=== PATIENT | female | born 1965 | race Caucasian/White ===

== ENCOUNTER 2019-02-20 19:24 | Emergency (ER) | payer MEDICARE ==
[2019-02-20] MEDS ORDERED: ONDANSETRON HCL INJ/PF 4 MG/2 ML SDV IV ONE (20:29)
[2019-02-20] MEDS ORDERED: NORMAL SALINE 1000 ML 1,000 ML IV ONE ×2 (20:29→22:34)
--- NOTE | 2019-02-20 20:35 | ER Document Report ---
ED Medical Screen (RME) - General Chief Complaint: Abdominal Pain Stated Complaint: HEADACHE Time Seen by Provider: 02/20/19 20:25 TRAVEL OUTSIDE OF THE [place] IN LAST 30 DAYS: No - HPI Notes: 02/20/19 20:29 Patient is a 53-year-old female with a history of fibromyalgia who presents complaining of right lower abdominal pain, nausea/vomiting, intermittent headaches, and 20 pound weight loss over the past 3 months. This is not the worst NULL of her life and did not start as a thunderclap. Denies fever, neck pain, URI, CP, SOB, dysuria, or rash. I have treated and performed a rapid initial assessment of this patient. A comprehensive ED assessment and evaluation of the patient, analysis of test results and completion of medical decision making process will be conducted by additional ED providers. PHYSICAL EXAMINATION: GENERAL: Well-appearing, well-nourished and in no acute distress. A&Ox4. Answers questions appropriately. LUNGS: Breath sounds clear to auscultation bilaterally and equal. No wheezes rales or rhonchi. HEART: Regular rate and rhythm without murmurs, rubs, gallops. ABDOMEN: Soft, nondistended abdomen. No guarding, no rebound. Normal bowel sounds present. No CVA tenderness bilaterally. + RLQ tenderness (cannot elicit thorough abd exam w/o bed, however). Extremities: No cyanosis, clubbing, or edema b/l. NEUROLOGICAL: Normal speech, normal gait. Cranial nerves grossly intact. PSYCH: Normal mood, normal affect. Past Medical History - Social History Chew tobacco use (# tins/day): No Frequency of alcohol use: None Drug Abuse: None Neurological Medical History: Reports: Hx Migraine Renal/ Medical History: Denies: Hx Peritoneal Dialysis Psychiatric Medical History: Reports: Hx Bipolar Disorder Physical Exam - Vital signs Vitals: Temp Pulse Resp BP Pulse Ox 98.0 F 70 18 116/49 L 97 02/20/19 19:48 02/20/19 19:48 02/20/19 19:48 02/20/19 19:48 02/20/19 19:48 Course - Vital Signs Vital signs: Temp Pulse Resp BP Pulse Ox 98.0 F 70 18 116/49 L 97 02/20/19 19:48 02/20/19 19:48 02/20/19 19:48 02/20/19 19:48 02/20/19 19:48
[2019-02-20] MEDS ORDERED: ONDANSETRON HCL INJ/PF 4 MG/2 ML SDV ONE ×2 (20:55→20:59)
[2019-02-20] MEDS ORDERED: METOCLOPRAMIDE HCL INJ/PF 10 MG/2 ML SDV IV ONE (21:26)
[2019-02-20] MEDS ORDERED: DIPHENHYDRAMINE HCL 50 MG/ML VIAL IV ONE (21:26)
--- NOTE | 2019-02-20 21:28 | ER Document Report ---
ED General - General Chief Complaint: Abdominal Pain Stated Complaint: HEADACHE Time Seen by Provider: 02/20/19 20:25 Notes: Patient is a 53-year-old female that comes to the emergency department for chief complaint of ongoing pain in her right mid to lower abdomen, nausea, reduced ability to eat, and subsequent weight loss. She states is been going on for weeks now. She denies abnormal bowel movements or bloody stools, she denies vomiting or fever. She states she is still nauseated after nausea medicine from triage, she states that she has intermittent headaches as well. She denies any surgeries. Past medical history of bipolar disorder, fibromyalgia, she is medicated with Depakote, gabapentin, Prozac, oxybutynin, and trazodone. at bedside. TRAVEL OUTSIDE OF THE [place] IN LAST 30 DAYS: No - Related Data Allergies/Adverse Reactions: Penicillins Allergy (Verified 02/20/19 20:30) Past Medical History - General Information source: Patient - Social History Smoking Status: Current Every Day Smoker Chew tobacco use (# tins/day): No Frequency of alcohol use: None Drug Abuse: None Lives with: Family Family History: Reviewed & Not Pertinent Patient has suicidal ideation: No Patient has homicidal ideation: No Neurological Medical History: Reports: Hx Migraine Renal/ Medical History: Denies: Hx Peritoneal Dialysis Psychiatric Medical History: Reports: Hx Bipolar Disorder - Immunizations Immunizations up to date: Yes Hx Diphtheria, Pertussis, Tetanus Vaccination: Yes Review of Systems - Review of Systems Constitutional: See HPI EENT: No symptoms reported Cardiovascular: No symptoms reported Respiratory: No symptoms reported Gastrointestinal: See HPI Genitourinary: No symptoms reported Female Genitourinary: No symptoms reported Musculoskeletal: No symptoms reported Skin: No symptoms reported Hematologic/Lymphatic: No symptoms reported Neurological/Psychological: No symptoms reported Physical Exam - Vital signs Vitals: Temp Pulse Resp BP Pulse Ox 98.0 F 70 18 116/49 L 97 02/20/19 19:48 02/20/19 19:48 02/20/19 19:48 02/20/19 19:48 02/20/19 19:48 - Notes Notes: GENERAL: Appears tired and mildly uncomfortable but is not in severe distress. HEAD: Normocephalic, atraumatic. EYES: Pupils equal, round, and reactive to light. Extraocular movements intact. ENT: Oral mucosa dry, tongue midline. Oropharynx unremarkable. Airway patent. LUNGS: Clear to auscultation bilaterally, no wheezes, rales, or rhonchi. No respiratory distress. HEART: Regular rate and rhythm. No murmur ABDOMEN: There is some diffuse mild tenderness in all quadrants, there is no guarding or rigidity, bowel sounds present and unremarkable. GENITOURINARY: Deferred EXTREMITIES: Moves all 4 extremities spontaneously. No edema, normal radial and dorsalis pedis pulses bilaterally. No cyanosis. BACK: no cervical, thoracic, lumbar midline tenderness. No saddle anesthesia, normal distal neurovascular exam. Moves all extremities in full range of motion. NEUROLOGICAL: Alert and oriented x3. Normal speech. Cranial nerves II through XII grossly intact. PSYCH: Normal affect, normal mood. SKIN: Warm, dry, normal turgor. No rashes or lesions noted. Course - Re-evaluation Re-evalutation: Patient has generalized abdominal tenderness on exam. She appears slightly uncomfortable. Vital signs unremarkable. CBC unremarkable. Chemistry shows slightly elevated potassium at 5.6, BUN is elevated, elevated specific gravity on urinalysis, hyaline casts. Overall picture is consistent with dehydration. Patient was given 2 bags of IV fluids. Because of patient's tenderness on exam and discomfort which has been ongoing decision was made to proceed with CAT scan with oral and IV contrast. Patient was treated with Reglan and Benadryl and does feel much better afterwards. CAT scan showing colitis. No abscess, perforation, appendicitis, or other concerning findings. This is consistent with patient's presentation. On reevaluation patient is requesting to leave. She will be given antibiotics, she will have close primary care recheck, her potassium was borderline but she was given 2 bags of IV fluids and this will be rechecked. I discussed follow-up instructions and strict return precautions in detail with patient and sig nificant other. They state satisfaction and agreement. Patient tolerated her p.o. antibiotics without difficulty. Stable at time of discharge. - Vital Signs Vital signs: Temp Pulse Resp BP Pulse Ox 98.0 F 70 18 128/54 H 97 02/20/19 19:48 02/20/19 19:48 02/20/19 19:48 02/20/19 23:15 02/20/19 19:48 - Laboratory Result Diagrams: 02/20/19 20:58 02/20/19 20:58 Laboratory results interpreted by me: 02/20/19 02/20/19 20:58 20:58 Sodium 135.9 L Potassium 5.6 H BUN 23 H Est GFR (MDRD) Non-Af 54 L Glucose 111 H AST 39 H Ur Leukocyte Esterase TRACE H Discharge - Discharge Clinical Impression: Colitis, Dehydration Abdominal pain Qualifiers: Abdominal location: generalized Qualified Code(s): R10.84 - Generalized abdominal pain Condition: Stable Disposition: HOME, SELF-CARE Additional Instructions: Your evaluation is consistent with colitis. Take the antibiotics as prescribed. I recommend a clear fluid diet for the first 24 hours, then bland food, then slowly progress. Take the pain and nausea medications if needed. Follow-up with your primary care provider closely for additional evaluation management. Return if you worsen including fever, vomiting, severe worsening pain, bloody stools, or any other concerning or worsening symptoms. Prescriptions: Ciprofloxacin HCl [Cipro 500 mg Tablet] 500 mg PO BID 7 Days #14 tablet Metronidazole [Flagyl 500 mg Tablet] 500 mg PO TID 7 Days #21 tablet Hydrocodone/Acetaminophen [[place] 5-325 mg Tablet] 1 tab PO ASDIR #10 tablet Promethazine HCl [Phenergan 25 mg Tablet] 25 mg PO Q6H PRN #15 tablet PRN Reason:
[2019-02-20 21:30] LABS: ABSOLUTE EOSINOPHILS # (AUTO) 0.2 10^3/uL (0.0-0.6); ABSOLUTE LYMPHOCYTES (AUTO) 2.7 10^3/uL (0.5-4.7); ABSOLUTE MONOCYTES (AUTO) 1.1 10^3/uL (0.1-1.4); BASOPHILS % (AUTO) 0.5 % (0-2); EOSINOPHILS % (AUTO) 1.6 % (0-6); HEMATOCRIT 42.9 % (36.0-47.0); HEMOGLOBIN 14.4 g/dL (12.0-15.5); LYMPHOCYTES % (AUTO) 26.9 % (13-45); MEAN CORPUSCULAR HEMOGLOBIN 32.5 pg (27.0-33.4); MEAN CORPUSCULAR HGB CONC 33.6 g/dL (32.0-36.0); MEAN CORPUSCULAR VOLUME 97 fl (80-97); MONOCYTES % (AUTO) 10.8 % (3-13); PLATELET COUNT 282 10^3/uL (150-450); RED BLOOD COUNT 4.43 10^6/uL (3.72-5.28); RED CELL DISTRIBUTION WIDTH 13.3 % (11.5-14.0); SEGMENTED NEUTROPHILS % (AUTO) 60.2 % (42-78); TOTAL CELLS COUNTED % (AUTO) 100 %
[2019-02-20 21:33] LABS: APPEARANCE,URINE CLOUDY; BILIRUBIN,URINE NEGATIVE (NEGATIVE); COLOR,URINE AMBER; GLUCOSE, URINE NEGATIVE (NEGATIVE); KETONES,URINE NEGATIVE (NEGATIVE); LEUKOCYTE ESTERASE,URINE TRACE (NEGATIVE); NITRITE,URINE NEGATIVE (NEGATIVE); PROTEIN,URINE NEGATIVE (NEGATIVE); URINE SPECIFIC GRAVITY 1.032; UROBILINOGEN,URINE NEGATIVE mg/dL (<2.0)
[2019-02-20 21:35] LABS: ALBUMIN 4.4 g/dL (3.5-5.0); ALKALINE PHOSPHATASE 72 U/L (38-126); ANION GAP 8 (5-19); ASPARTATE AMINO TRANSFERASE 39 U/L (14-36); BILIRUBIN,DIRECT 0.2 mg/dL (0.0-0.4); BILIRUBIN,TOTAL 0.2 mg/dL (0.2-1.3); BLOOD UREA NITROGEN 23 mg/dL (7-20); CALCIUM 10.2 mg/dL (8.4-10.2); CARBON DIOXIDE 29 mmol/L (22-30); CHLORIDE 99 mmol/L (98-107); GLUCOSE 111 mg/dL (75-110); POTASSIUM 5.6 mmol/L (3.6-5.0); TOTAL PROTEIN 6.8 g/dL (6.3-8.2)
[2019-02-20] MEDS ORDERED: PROMETHAZINE HCL INJ 25 MG/1 ML VIAL ONE (22:01)
[2019-02-20 23:16] VITALS: BP 128/54
--- NOTE | 2019-02-20 23:27 | RADIOLOGY REPORT (SQ) ---
CT ABDOMEN PELVIS WITH IV CONTRAST EXAM DATE: 02/20/2019 12:00 AM CDT HISTORY: Right lower quadrant pain. COMPARISON: None. TECHNIQUE: CT scan of the abdomen and pelvis was performed with IV contrast. This exam was performed according to our departmental dose-optimization program, which includes automated exposure control, adjustment of the mA and/or kV according to patient size and/or use of iterative reconstruction technique. FINDINGS: The lung bases are clear. No pleural or pericardial effusions. The gallbladder is contracted, limiting evaluation. Liver, spleen, pancreas, adrenal glands, and kidneys are normal. No hydronephrosis or urinary stones. The uterus appears atrophic. Mild wall thickening throughout the colon. The appendix is normal. No small bowel obstruction. No intraperitoneal free fluid or free air is seen. No acute bony findings. The aorta is normal in caliber. IMPRESSION: 1. Mild wall thickening of the colon which may represent colitis. 2. Normal appendix.
[2019-02-21] MEDS ORDERED: HYDROCODONE/ACETAMINOPHEN 5-325 MG (6 TAB/ER DISP) PO PRN (00:02)
[2019-02-21] MEDS ORDERED: CIPROFLOXACIN HCL 500 MG TABLET PO ONE (00:02)
[2019-02-21] MEDS ORDERED: METRONIDAZOLE 500 MG TABLET PO ONE (00:02)
[2019-02-21] MEDS ORDERED: ONDANSETRON ODT 4 MG TAB (6 TAB/ER DISP) PO PRN (00:02)
== END 2019-02-21 00:21 | disposition home or self-care (01) ==
LOC: ER 19:24
DX: R10.84 Generalized abdominal pain (principal); K52.9 Noninfective gastroenteritis and colitis, unspecified; E86.0 Dehydration; R51 Headache; R10.31 Right lower quadrant pain; R63.0 Anorexia; R11.0 Nausea; R63.4 Abnormal weight loss; F17.200 Nicotine dependence, unspecified, uncomplicated
CPT/HCPCS: 36415; 83690; 85025; 80053; 81001; 74177; J1200; J2765; J2405; J7030

== ENCOUNTER 2019-03-11 16:44 | Emergency (ER) | payer MEDICARE ==
--- NOTE | 2019-03-11 18:24 | ER Document Report ---
ED Medical Screen (RME) - General Mode of Arrival: Ambulatory Information source: Patient TRAVEL OUTSIDE OF THE [place] IN LAST 30 DAYS: No <SANDI MORALES - Last Filed: 03/11/19 18:20> <FAMILIA HUERTA - Last Filed: 03/12/19 13:24> - General Chief Complaint: Depression Stated Complaint: PSYCH Time Seen by Provider: 03/11/19 18:19 Primary Care Provider: KAREEM MCALLISTER MD [Primary Care Provider] - Follow up as needed Notes: 54-year-old female presented to ED for complaint of severe depression. She states she is bipolar and has not been taking her medications correctly. 3 weeks ago she was seen in the ED for abdominal pain and infection got pain medicine and antibiotics. Has been states she thinks she got the medication mixed up with her normal medications so she has not been taken her medication properly and now she is severely depressed and wants to sleep all the time. He she needs to sleep and states she is not eating at all and also wants to do a sleep. She denies any thoughts of suicide or homicide. states she just need to figure out what is going on with her. I have greeted and performed a rapid initial assessment of this patient. A comprehensive ED assessment and evaluation of the patient, analysis of test results and completion of medical decision making process will be conducted by an additional ED providers. (SANDI MORALES) - Related Data Allergies/Adverse Reactions: Penicillins Allergy (Verified 03/11/19 16:45) Past Medical History Neurological Medical History: Reports: Hx Migraine Renal/ Medical History: Denies: Hx Peritoneal Dialysis Psychiatric Medical History: Reports: Hx Bipolar Disorder - Immunizations Immunizations up to date: Yes Hx Diphtheria, Pertussis, Tetanus Vaccination: Yes <SANDI MORALES - Last Filed: 03/11/19 18:20> Physical Exam - Vital signs Vitals: Temp Pulse Resp BP Pulse Ox 97.9 F 88 16 113/44 L 96 03/11/19 16:51 03/11/19 16:51 03/11/19 16:51 03/11/19 16:51 03/11/19 16:51 Course - Laboratory Result Diagrams: 03/11/19 18:58 03/11/19 18:58 <FAMILIA HUERTA P - Last Filed: 03/12/19 13:24> - Vital Signs Vital signs: Temp Pulse Resp BP Pulse Ox 98.4 F 80 16 114/38 L 95 03/12/19 07:57 03/12/19 07:57 03/12/19 07:57 03/12/19 07:57 03/12/19 07:57 - Laboratory Laboratory results interpreted by me: 03/11/19 03/11/19 03/11/19 18:58 18:58 18:58 Sodium 133.3 L Chloride 97 L Glucose 152 H Calcium 10.4 H Urine Protein 100 H Urine Ketones TRACE H Urine Blood SMALL H Urine Urobilinogen 4.0 H Valproic Acid < 10.0 L Doctor's Discharge <SANDI MORALES - Last Filed: 03/11/19 18:20> <FAMILIA HUERTA P - Last Filed: 03/12/19 13:24> - Discharge Clinical Impression: Noncompliance with medication regimen Depression Qualifiers: Depression Type: unspecified Qualified Code(s): F32.9 - Major depressive disorder, single episode, unspecified Condition: Stable Disposition: HOME, SELF-CARE Additional Instructions: You have been evaluated both medical and behavioral health teams have been deemed appropriate for discharge. You have disclosed wanting to voluntarily get back on your medication. The behavioral health team has been able to secure a bed for you at [facility] With an arrival time of 1:30 PM. You are highly encouraged to follow through with this voluntary placement. AT ANY TIME, IF YOUR SYMPTOMS CHANGE SIGNIFICANTLY OR WORSEN OR YOU DEVELOP NEW SYMPTOMS, RETURN TO THE EMERGENCY DEPARTMENT IMMEDIATELY FOR RE-EVALUATION. Referrals: KAREEM MCALLISTER MD [Primary Care Provider] - Follow up as needed
[2019-03-11 19:24] LABS: ABSOLUTE EOSINOPHILS # (AUTO) 0.1 10^3/uL (0.0-0.6); ABSOLUTE LYMPHOCYTES (AUTO) 2.8 10^3/uL (0.5-4.7); ABSOLUTE MONOCYTES (AUTO) 0.7 10^3/uL (0.1-1.4); ABSOLUTE NEUT (AUTO) 6.6 10^3/uL (1.7-8.2); BASOPHILS % (AUTO) 0.5 % (0-2); EOSINOPHILS % (AUTO) 0.6 % (0-6); HEMATOCRIT 41.7 % (36.0-47.0); HEMOGLOBIN 14.4 g/dL (12.0-15.5); LYMPHOCYTES % (AUTO) 27.8 % (13-45); MEAN CORPUSCULAR HEMOGLOBIN 32.4 pg (27.0-33.4); MEAN CORPUSCULAR HGB CONC 34.4 g/dL (32.0-36.0); MEAN CORPUSCULAR VOLUME 94 fl (80-97); MONOCYTES % (AUTO) 6.4 % (3-13); PLATELET COUNT 298 10^3/uL (150-450); RED BLOOD COUNT 4.43 10^6/uL (3.72-5.28); RED CELL DISTRIBUTION WIDTH 13.1 % (11.5-14.0); SEGMENTED NEUTROPHILS % (AUTO) 64.7 % (42-78); TOTAL CELLS COUNTED % (AUTO) 100 %; WHITE BLOOD COUNT 10.2 10^3/uL (4.0-10.5)
[2019-03-11 19:33] LABS: APPEARANCE,URINE SLIGHTLY-CLOUDY; BILIRUBIN,URINE NEGATIVE (NEGATIVE); COLOR,URINE AMBER; GLUCOSE, URINE NEGATIVE (NEGATIVE); KETONES,URINE TRACE mg/dL (NEGATIVE); LEUKOCYTE ESTERASE,URINE NEGATIVE (NEGATIVE); NITRITE,URINE NEGATIVE (NEGATIVE); PROTEIN,URINE 100 mg/dL (NEGATIVE); URINE SPECIFIC GRAVITY 1.018
[2019-03-11 19:41] LABS: ALBUMIN 4.4 g/dL (3.5-5.0); ALKALINE PHOSPHATASE 75 U/L (38-126); ANION GAP 10 (5-19); ASPARTATE AMINO TRANSFERASE 24 U/L (14-36); BILIRUBIN,DIRECT 0.1 mg/dL (0.0-0.4); BILIRUBIN,TOTAL 0.4 mg/dL (0.2-1.3); BLOOD UREA NITROGEN 8 mg/dL (7-20); CALCIUM 10.4 mg/dL (8.4-10.2); CARBON DIOXIDE 26 mmol/L (22-30); CHLORIDE 97 mmol/L (98-107); CREATINE KINASE 52 U/L (30-135); GLUCOSE 152 mg/dL (75-110); TOTAL PROTEIN 6.9 g/dL (6.3-8.2)
[2019-03-11] MEDS ORDERED: DIVALPROEX SODIUM 250 MG TABLET.DR PO SCH (22:35)
[2019-03-11] MEDS ORDERED: GABAPENTIN 300 MG CAPSULE PO SCH (22:35)
[2019-03-11] MEDS ORDERED: FLUOXETINE HCL 20 MG CAPSULE PO SCH (22:36)
[2019-03-11] MEDS ORDERED: TRAZODONE HCL 50 MG TABLET PO SCH (22:40)
[2019-03-11] MEDS ORDERED: OXYBUTYNIN CHLORIDE 5 MG TABLET PO SCH (22:40)
--- NOTE | 2019-03-11 23:37 | ER Document Report ---
Entered by CANDIDO BECK SCRIBE 03/11/19 2208 Acting as scribe for:ARON ALFRED MD ED Psych Disorder / Suicide - General Chief Complaint: Depression Stated Complaint: PSYCH Time Seen by Provider: 03/11/19 18:19 Primary Care Provider: KAREEM MCALLISTER MD [Primary Care Provider] - Follow up as needed Mode of Arrival: Ambulatory Information source: Patient Notes: Patient is a 54-year-old female who presented to the emergency department today with complaints of being depressed. Patient states that she was seen here 3 weeks ago and was diagnosed with colitis, sent home on cipro and flagyl. Patient states she "mixed up her medicine" and so she stopped taking them altogether. Patient states she has not taken any medication today. Patient is supposed to be taking Cipro, Flagyl, Depakote, Prozac, trazodone, and gabapentin. Patient endorses feeling depressed but denies any suicidal or homicidal ideation. TRAVEL OUTSIDE OF THE [place] IN LAST 30 DAYS: No - Related Data Allergies/Adverse Reactions: Penicillins Allergy (Verified 03/11/19 16:45) Past Medical History - General Information source: Patient - Social History Smoking Status: Current Every Day Smoker Cigarette use (# per day): Yes - 2 ppd Frequency of alcohol use: None Drug Abuse: None Lives with: Family Family History: Reviewed & Not Pertinent Neurological Medical History: Reports: Hx Migraine GI Medical History: Reports: Other - Hx Colitis Psychiatric Medical History: Reports: Hx Bipolar Disorder Surgical Hx: Negative - Immunizations Immunizations up to date: Yes Hx Diphtheria, Pertussis, Tetanus Vaccination: Yes Review of Systems - Review of Systems Constitutional: See HPI, Other - not taking medications EENT: No symptoms reported Cardiovascular: No symptoms reported Respiratory: No symptoms reported Gastrointestinal: No symptoms reported Genitourinary: No symptoms reported Female Genitourinary: No symptoms reported Musculoskeletal: No symptoms reported Skin: No symptoms reported Hematologic/Lymphatic: No symptoms reported Neurological/Psychological: See HPI, Depression. denies: Homicidal ideation, Suicidal ideation -: Yes All other systems reviewed and negative Physical Exam - Vital signs Vitals: Temp Pulse Resp BP Pulse Ox 97.9 F 88 16 113/44 L 96 03/11/19 16:51 03/11/19 16:51 03/11/19 16:51 03/11/19 16:51 03/11/19 16:51 - Notes Notes: Physical Exam: General: Alert, appears depressed, very frail. HEENT: Normocephalic. Atraumatic. PERRL. Extraocular movements intact. Oropharynx clear. Edentulous, dentures in place. Neck: Supple. Non-tender. Respiratory: No respiratory distress. Clear and equal breath sounds bilaterally. Cardiovascular: Regular rate and rhythm. Abdominal: Normal Inspection. Non-tender. No distension. Normal Bowel Sounds. Back: No gross abnormalities. Extremities: Moves all four extremities. Upper extremities: Normal inspection. Normal ROM. Lower extremities: Normal inspection. No edema. Normal ROM. Neurological: Normal cognition. AAOx4. Normal speech. Psychological: Depressed. Skin: Warm. Dry. Normal color. Course - Vital Signs Vital signs: Temp Pulse Resp BP Pulse Ox 97.9 F 88 16 113/44 L 96 03/11/19 16:51 03/11/19 16:51 03/11/19 16:51 03/11/19 16:51 03/11/19 16:51 - Laboratory Result Diagrams: 03/11/19 18:58 03/11/19 18:58 Laboratory results interpreted by me: 03/11/19 03/11/19 18:58 18:58 Sodium 133.3 L Chloride 97 L Glucose 152 H Calcium 10.4 H Urine Protein 100 H Urine Ketones TRACE H Urine Blood SMALL H Urine Urobilinogen 4.0 H Discharge - Discharge Clinical Impression: Noncompliance with medication regimen Depression Qualifiers: Depression Type: unspecified Qualified Code(s): F32.9 - Major depressive disorder, single episode, unspecified Condition: Stable Disposition: PSYCH HOSP/UNIT Referrals: KAREEM MCALLISTER MD [Primary Care Provider] - Follow up as needed Scribe Attestation: 03/11/19 23:38 I personally performed the services described in the documentation, reviewed and edited the documentation which was dictated to the scribe in my presence, and it accurately records my words and actions. I personally performed the services described in the documentation, reviewed and edited the documentation which was dictated to the scribe in my presence, and it accurately records my words and actions.
[2019-03-12] MEDS ORDERED: DIVALPROEX SODIUM 250 MG TABLET.DR PO ONE (00:49)
[2019-03-12] MEDS ORDERED: TRAZODONE HCL 50 MG TABLET PO ONE (00:51)
[2019-03-12 08:03] VITALS: BP 114/38
[2019-03-12] MEDS: OXYBUTYNIN CHLORIDE 5 MG TABLET PO SCH ×2 (09:15→13:20)
[2019-03-12] MEDS ORDERED: GABAPENTIN 300 MG CAPSULE PO SCH (10:00)
[2019-03-12] MEDS ORDERED: FLUOXETINE HCL 20 MG CAPSULE PO SCH (10:00)
[2019-03-12] MEDS ORDERED: TRAZODONE HCL 50 MG TABLET PO SCH (10:00)
[2019-03-12] MEDS ORDERED: DIVALPROEX SODIUM 250 MG TABLET.DR PO SCH (10:00)
--- NOTE | 2019-03-12 10:34 | ER Document Report ---
Doctor's Note Notes: 03/12/19 10:33 Pt seen with no specific complaints to me at this time. She is sleepy. I will ask psychiatry to see and offer some input. She is here voluntarily up to now. reportedly went home to get some sleep.
--- NOTE | 2019-03-12 12:09 | PSYCHOLOGICAL NOTE ---
Psych Note - Psych Note Date seen by psych provider: 03/12/19 Time seen by psych provider: 11:04 Psych Note: Reason for Consult: Depression Patient is a 54-year-old female who presented to the emergency department today with complaints of being depressed. Patient states that she was seen here 3 weeks ago and was diagnosed with colitis, sent home on cipro and flagyl. Patient states she "mixed up her medicine" and so she stopped taking all of her medications. She disclosed that she asked her to bring her here so she can get help getting "back on medications and get straightened out." Patient denies any thoughts of wanting to harm herself or others. Patient disclosed her medications are Depakote, Prozac, and trazodone. Patient denies seeing or hearing things that confuse her scare her. Patient is alert and orientated to person, place, time and circumstance. Patient had to be awoken for evaluation. Clinician notes patient has been sleeping nonstop since her initial arrival. Patient denies suicidal and homicidal ideation. Delusions are absent behaviors congruent with an intact reality based presentation i.e. organized linear thought process. Eye contact is fair. Conversational speech is within normal rate, tone and prosody. Intellectual abilities appear to be within the average range. Attention and concentration are fair. Insight, judgment, impulse control are fair. The behavioral team contacted [facility]. They confirm they will reserve a bed for the patient 4 arrival time of 1:30 PM. Bipolar per history provided by patient No medication recommendations at this time Impression\\plan: Patient is cleared from acute psychiatric services. Patient reports being off medications for 3 weeks and wanting to get back on. Patient does not meet IVC criteria per [place] GS 122C. Patient reports wanting to voluntarily get back on her medications and get "straightened out." Behavioral health team has been able to secure a bed at [facility] with an arrival time of 1:[address] Berger was consulted and the care management of this patient; attending physicians in agreement with recommendations and disposition.
== END 2019-03-12 14:38 | disposition home or self-care (01) ==
LOC: ER 16:44
DX: Z91.14 Patient's other noncompliance with medication regimen (principal); F32.9 Major depressive disorder, single episode, unspecified; Z88.0 Allergy status to penicillin
CPT/HCPCS: 36415; 82550; 83690; 85025; 80053; 81001; 80164; A9270 ×5; 99284

== ENCOUNTER 2019-08-07 15:15 | Emergency (ER) | payer MEDICARE ==
--- NOTE | 2019-08-07 16:20 | ER Document Report ---
ED Medical Screen (RME) - General Chief Complaint: Depression Stated Complaint: DIARRHEA Time Seen by Provider: 08/07/19 16:18 Primary Care Provider: KAREEM MCALLISTER MD [Primary Care Provider] - Follow up as needed Notes: HPI: 54-year-old female with history of bipolar depression presenting to the emergency department for severe depression. Patient unable to tell me how long she has had the significant depression but she is very tearful today. Patient complains of generalized pain. No focal pain. Denies fevers or recent illness. Denies drug or alcohol use. Patient states she has been off of her bipolar me dication for an unknown amount of time. Patient states that she has had a prior history of suicide attempt but specifically denies suicidal or homicidal ideation today I have greeted and performed a rapid initial assessment of this patient. A comprehensive ED assessment and evaluation of the patient, analysis of test results and completion of the medical decision making process will be conducted by additional ED providers PHYSICAL EXAMINATION: GENERAL: Well-appearing, well-nourished and in mild acute distress. HEAD: Atraumatic, normocephalic. EYES: sclera anicteric, conjunctiva are normal. ENT: Moist mucous membranes. NECK: Normal range of motion LUNGS: Normal work of breathing HEART: 2+ radial pulses bilaterally ABD: limited by positioning for exam in triage. EXTREMITIES: no pitting or edema. No cyanosis. NEUROLOGICAL: No focal neurological deficits. Moves all extremities spontaneously and on command. PSYCH: N depressed affect to move, patient is very tearful SKIN: Warm, Dry, normal turgor, no rashes or lesions noted. TRAVEL OUTSIDE OF THE [place] IN LAST 30 DAYS: No - Related Data Allergies/Adverse Reactions: Penicillins Allergy (Verified 08/07/19 16:06) Past Medical History - Social History Frequency of alcohol use: None Drug Abuse: Marijuana Neurological Medical History: Reports: Hx Migraine Renal/ Medical History: Denies: Hx Peritoneal Dialysis Psychiatric Medical History: Reports: Hx Bipolar Disorder - Immunizations Immunizations up to date: Yes Hx Diphtheria, Pertussis, Tetanus Vaccination: Yes Physical Exam - Vital signs Vitals: Temp Pulse Resp BP Pulse Ox 97.6 F 93 20 118/71 100 08/07/19 15:59 08/07/19 15:59 08/07/19 15:59 08/07/19 15:59 08/07/19 15:59 Course - Vital Signs Vital signs: Temp Pulse Resp BP Pulse Ox 97.6 F 93 20 118/71 100 08/07/19 15:59 08/07/19 15:59 08/07/19 15:59 08/07/19 15:59 08/07/19 15:59 Doctor's Discharge - Discharge Referrals: KAREEM MCALLISTER MD [Primary Care Provider] - Follow up as needed
[2019-08-07 17:58] LABS: ABSOLUTE EOSINOPHILS # (AUTO) 0.1 10^3/uL (0.0-0.6); ABSOLUTE MONOCYTES (AUTO) 0.8 10^3/uL (0.1-1.4); BASOPHILS % (AUTO) 0.4 % (0-2); EOSINOPHILS % (AUTO) 0.6 % (0-6); HEMOGLOBIN 14.2 g/dL (12.0-15.5); LYMPHOCYTES % (AUTO) 27.6 % (13-45); MEAN CORPUSCULAR HEMOGLOBIN 31.2 pg (27.0-33.4); MEAN CORPUSCULAR HGB CONC 34.7 g/dL (32.0-36.0); MEAN CORPUSCULAR VOLUME 90 fl (80-97); MONOCYTES % (AUTO) 7.7 % (3-13); PLATELET COUNT 361 10^3/uL (150-450); RED BLOOD COUNT 4.56 10^6/uL (3.72-5.28); RED CELL DISTRIBUTION WIDTH 14.1 % (11.5-14.0); SEGMENTED NEUTROPHILS % (AUTO) 63.7 % (42-78); TOTAL CELLS COUNTED % (AUTO) 100 %
[2019-08-07 18:23] LABS: ALBUMIN 4.4 g/dL (3.5-5.0); ALKALINE PHOSPHATASE 145 U/L (38-126); ANION GAP 10 (5-19); ASPARTATE AMINO TRANSFERASE 29 U/L (14-36); BILIRUBIN,TOTAL 0.7 mg/dL (0.2-1.3); BLOOD UREA NITROGEN 5 mg/dL (7-20); CALCIUM 10.4 mg/dL (8.4-10.2); CARBON DIOXIDE 26 mmol/L (22-30); CHLORIDE 105 mmol/L (98-107); GLUCOSE 84 mg/dL (75-110); POTASSIUM 4.6 mmol/L (3.6-5.0)
[2019-08-07 18:24] LABS: APPEARANCE,URINE CLEAR; BILIRUBIN,URINE NEGATIVE (NEGATIVE); COLOR,URINE YELLOW; GLUCOSE, URINE NEGATIVE (NEGATIVE); KETONES,URINE NEGATIVE (NEGATIVE); LEUKOCYTE ESTERASE,URINE NEGATIVE (NEGATIVE); NITRITE,URINE NEGATIVE (NEGATIVE); PROTEIN,URINE NEGATIVE (NEGATIVE); URINE SPECIFIC GRAVITY 1.003
[2019-08-07 18:28] LABS: ACETAMINOPHEN < 10 ug/mL (10-30); ALCOHOL < 10 mg/dL (NONE DETECTED); SALICYLATE < 1.0 mg/dL (2.0-20.0)
--- NOTE | 2019-08-07 18:38 | EKG REPORT ---
SEVERITY:- ABNORMAL ECG - SINUS RHYTHM BINTA, CONSIDER BIATRIAL ABNORMALITIES BORDERLINE T ABNORMALITIES, ANT-LAT LEADS : Confirmed by: Ania Jones MD 07-Aug-2019 18:36:19
[2019-08-07 18:39] LABS: URINE AMPHETAMINES SCREEN NEGATIVE; URINE BARBITURATES SCREEN NEGATIVE; URINE BENZODIAZEPINES SCREEN NEGATIVE; URINE COCAINE SCREEN NEGATIVE; URINE MARIJUANA (THC) SCREEN NEGATIVE; URINE METHADONE SCREEN NEGATIVE; URINE PHENCYCLIDINE SCREEN NEGATIVE
[2019-08-07] MEDS ORDERED: OXYBUTYNIN CHLORIDE 5 MG TABLET PO ONE (21:39)
[2019-08-07] MEDS ORDERED: TRAZODONE HCL 50 MG TABLET PO ONE (21:41)
--- NOTE | 2019-08-07 21:47 | ER Document Report ---
ED Psych Disorder / Suicide - General Chief Complaint: Depression Stated Complaint: DIARRHEA Time Seen by Provider: 08/07/19 16:18 Primary Care Provider: KAREEM MCALLISTER MD [Primary Care Provider] - Follow up as needed Notes: Patient is a 54-year-old female that comes to the emergency department for chief complaint of depression. She and her are here, they both state that she has been extremely depressed, patient spends all day in bed, sleeps constantly, is crying constantly when she is awake. She has been doing this for over 3 weeks now. She does have a history of the same. She states she is supposed to be taking Depakote, Prozac, trazodone but she only takes trazodone to help her sleep. She has been off her medications for some time now, she is unsure how long. She smokes, smokes marijuana, denies alcohol or recreational drugs otherwise. She denies any diagnosed medical history otherwise. She states she is having diarrhea and has been having this for a long time but denies significant change, abdominal pain, fever, vomiting. She denies any other complaints. She denies SI or HI. She has attempted suicide in the past but states she has no intention to now. She states she is diagnosed with bipolar disorder and depression. TRAVEL OUTSIDE OF THE [place] IN LAST 30 DAYS: No - Related Data Allergies/Adverse Reactions: Penicillins Allergy (Verified 08/07/19 16:06) Past Medical History - General Information source: Patient - Social History Smoking Status: Current Every Day Smoker Frequency of alcohol use: None Drug Abuse: Marijuana Lives with: Family Family History: Reviewed & Not Pertinent Patient has suicidal ideation: No Patient has homicidal ideation: No Neurological Medical History: Reports: Hx Migraine Renal/ Medical History: Denies: Hx Peritoneal Dialysis Psychiatric Medical History: Reports: Hx Bipolar Disorder - Immunizations Immunizations up to date: Yes Hx Diphtheria, Pertussis, Tetanus Vaccination: Yes Review of Systems - Review of Systems Constitutional: See HPI EENT: No symptoms reported Cardiovascular: No symptoms reported Respiratory: No symptoms reported Gastrointestinal: See HPI Genitourinary: No symptoms reported Female Genitourinary: No symptoms reported Musculoskeletal: No symptoms reported Skin: No symptoms reported Hematologic/Lymphatic: No symptoms reported Neurological/Psychological: See HPI Physical Exam - Vital signs Vitals: Temp Pulse Resp BP Pulse Ox 97.6 F 93 20 118/71 100 08/07/19 15:59 08/07/19 15:59 08/07/19 15:59 08/07/19 15:59 08/07/19 15:59 - Notes Notes: GENERAL: Alert, cooperative HEAD: Normocephalic, atraumatic. EYES: Pupils equal, round, and reactive to light. Extraocular movements intact. ENT: Oral mucosa moist, tongue midline. Oropharynx unremarkable. Airway patent. NECK: Full range of motion. Supple. Trachea midline. LUNGS: Clear to auscultation bilaterally, no wheezes, rales, or rhonchi. No r espiratory distress. HEART: Regular rate and rhythm. No murmur ABDOMEN: Soft, non-tender. Non-distended. Bowel sounds present in all 4 quadrants. GENITOURINARY: Deferred EXTREMITIES: Moves all 4 extremities spontaneously. No edema, normal radial and dorsalis pedis pulses bilaterally. No cyanosis. BACK: no cervical, thoracic, lumbar midline tenderness. No saddle anesthesia, normal distal neurovascular exam. Moves all extremities in full range of motion. NEUROLOGICAL: Alert and oriented x3. Normal speech. Cranial nerves II through XII grossly intact. PSYCH: Constantly crying, makes poor eye contact, frequently does look at her to speak for her SKIN: Warm, dry, normal turgor. No rashes or lesions noted. Course - Re-evaluation Re-evalutation: Patient states she is just here to "get right". She states she has been very depressed and constantly crying. Patient is tearful on exam. Patient makes poor eye contact, she asks her to do most of the talking. Patient states she is barely eating, losing weight, sleeps constantly, crying when she is awake. She is not suicidal or homicidal. She is cooperative. She states that she is willing to stay until the morning to talk to mental health team, initially she stated she wanted to go home but after discussion with her she decided to stay. Her abdomen is soft and benign, she has no current symptoms, we will check her stool when possible, she was provided with nicotine patch and oxybutynin on request, provided with trazodone to help her sleep to night. Patient is here voluntarily pending mental health team evaluation in the morning. Even with pending stool testing patient is medically cleared. - Vital Signs Vital signs: Temp Pulse Resp BP Pulse Ox 97.6 F 93 20 118/71 100 08/07/19 15:59 08/07/19 15:59 08/07/19 15:59 08/07/19 15:59 08/07/19 15:59 - Laboratory Result Diagrams: 08/07/19 17:20 08/07/19 17:20 Laboratory results interpreted by me: 08/07/19 08/07/19 08/07/19 17:00 17:20 17:20 WBC 11.0 H RDW 14.1 H BUN 5 L Calcium 10.4 H Alkaline Phosphatase 145 H Urine Urobilinogen 2.0 H Salicylates < 1.0 L Acetaminophen < 10 L Discharge - Discharge Clinical Impression: Depression Qualifiers: Depression Type: major depressive disorder Major depression recurrence: unspecified whether recurrent Active/Remission status: currently active Major depression episode severity: unspecified Qualified Code(s): F32.9 - Major depressive disorder, single episode, unspecified Diarrhea Qualifiers: Diarrhea type: unspecified type Qualified Code(s): R19.7 - Diarrhea, unspecified Condition: Stable Disposition: PSYCH HOSP/UNIT Referrals: KAREEM MCALLISTER MD [Primary Care Provider] - Follow up as needed
[2019-08-07] MEDS: NICOTINE 14 MG/24 HR PATCH.TD24 TD ONE ×2 (21:54→21:56)
[2019-08-08] MEDS ORDERED: BUSPIRONE HCL 10 MG TABLET PO ONE (10:19)
--- NOTE | 2019-08-08 10:29 | ER Document Report ---
Doctor's Note Notes: 08/08/19 10:27 Progress note: Reevaluation of the patient this morning shows her to be resting comfortably in the room. She is awake and alert. States that she slept well last night. She is eating and drinking without any difficulty. She denies having any diarrhea during her stay here. She denies any medical complaints, abdominal pain or diarrhea or nausea or vomiting. Mental health has evaluated her and found her to be stable for discharge and outpatient mental health follow-up. They will discontinue her trazodone and add BuSpar 5 mg p.o. twice daily. Patient is agreeable to this plan. We discussed smoking cessation at length. She is amenable. Reevaluation of her abdomen shows it to be soft and nontender with normal bowel sounds. Heart regular rate and rhythm. Lungs clear to auscultation bilaterally. Vitals within normal limits. She is stable and appropriate for discharge and outpatient follow-up. 08/08/19 10:29
[2019-08-08 14:01] VITALS: BP 129/51
--- NOTE | 2019-08-08 15:50 | PSYCHOLOGICAL NOTE ---
Psych Note - Psych Note Date seen by psych provider: 08/08/19 Time seen by psych provider: 08:05 Psych Note: Patient is a 54-year-old female who presents to ED via POV requesting assistance with mental health medications. Patient was last seen by behavioral health on 03-12-2019 for a "mix up with meds." Patient was resting when clinician entered the room. Patient states the only medications she has been taking is Trazodone and Oxybutrin. Patient is generally a poor historian. States she has not been taking meds for quite time. Patient is tearful and states she "worries about family a lot." When asked to elaborate patient responded "I do not know." When asked about specific concerns patient replied "I do not know." Patient denied physical and or sexual abuse. Patient stated she felt safe at home and her was a source of support. Update 10:00 AM-spoke with patient's who stated patient recently went to [place] to visit son and [id number] and [id number] took it upon herself to take patient off of her medications "because she did not need them." states concerns that patient is not leaving the bed and not doing anything for about a month." denies patient is a danger to herself or others. reports he will make sure she is taking medications as prescribed daily from now on. Patient is tearful but cooperative and engaged with clinician. Medication recommendations per [facility] contracted psychiatrist Dr. Konstantin MD are as follows: Discontinue Trazodone Add Buspar 5MG, twice a day Impression/Plan: Patient is cleared from acute psychiatric services. Patient denies suicidal and homicidal ideations. There is no observed behavior that suggests patient is responding to internal stimuli. Behavioral health team was able to schedule medication management appointment at [facility] on [address] at 10:30 AM. Behavioral health team contacted [facility] and was informed they offer walk-in mental health services Monday through Monday 8:30-2:30. agreed to be part of patient's plan of care which includes observing for signs of emotional distress, being responsible for medication management and administration, assisting with transportation and scheduling to mental health [facility]. Dr. Berger was consulted on the care and management of this patient; attending physician is in agreement with recommendations and disposition.
[2019-08-08 15:59] LABS: C DIFFICILE GDH POSITIVE (NEGATIVE)
== END 2019-08-08 13:45 | disposition home or self-care (01) ==
LOC: ER 15:15
DX: F32.9 Major depressive disorder, single episode, unspecified (principal); R19.7 Diarrhea, unspecified; F17.200 Nicotine dependence, unspecified, uncomplicated
CPT/HCPCS: 93005; 99285; 36415; 87045; 89055; 87205; 80307 ×4; 85025; 80053; 81001; 80164; 87324; 87449; 93010; A9270 ×3

== ENCOUNTER 2020-03-05 13:29 | Emergency (ER) | payer MEDICARE ==
[2020-03-05 13:40] VITALS: BP 105/41
--- NOTE | 2020-03-05 15:39 | ER Document Report ---
ED General - General Chief Complaint: Depression Stated Complaint: BEHAVORIAL ISSUES Primary Care Provider: ADÁN TINEO PA-C [Primary Care Provider] - Follow up as needed Mode of Arrival: Ambulatory Information source: Patient Notes: Patient is a 54-year-old female presenting to the emergency department chief complaint of runny nose and generalized aches and pains. Patient states that aryan yadav has been seen a couple of times at various hospitals over the past couple of days she was seen at [facility] last night and told everything was normal. Patient presents today after having a coronavirus test done at [facility]. Patient is here for evaluation and treatment. Patient is quite tearful at time of presentation. Patient denies suicidal or homicidal ideations. She states she is taking her Depakote and trazodone as prescribed. Patient relates to smoking 2 packs of cigarettes per day, this is her only real risk factor for coronavirus. TRAVEL OUTSIDE OF THE [place] IN LAST 30 DAYS: No - HPI Onset: Last week Onset/Duration: Persistent Quality of pain: Achy Severity: Mild Pain Level: 1 Associated symptoms: Body/muscle aches, Chills, Nonproductive cough, Fever, Shortness of breath. denies: Diarrhea, Nausea, Vomiting Exacerbated by: Denies Relieved by: Denies Similar symptoms previously: Yes Recently seen / treated by doctor: Yes - Patient was seen at [facility] last night. - Related Data Allergies/Adverse Reactions: Penicillins Allergy (Verified 03/05/20 14:51) Past Medical History - General Information source: Patient - Social History Smoking Status: Current Every Day Smoker Cigarette use (# per day): Yes Chew tobacco use (# tins/day): No Smoking Education Provided: Yes Frequency of alcohol use: None Drug Abuse: None Lives with: Spouse/Significant other Family History: Reviewed & Not Pertinent Patient has suicidal ideation: No Patient has homicidal ideation: No Neurological Medical History: Reports: Hx Migraine Renal/ Medical History: Denies: Hx Peritoneal Dialysis Psychiatric Medical History: Reports: Hx Anxiety, Hx Bipolar Disorder - Immunizations Immunizations up to date: Yes Hx Diphtheria, Pertussis, Tetanus Vaccination: Yes Review of Systems - Review of Systems Constitutional: See HPI EENT: See HPI Cardiovascular: No symptoms reported Respiratory: Short of breath Gastrointestinal: No symptoms reported Genitourinary: No symptoms reported Female Genitourinary: No symptoms reported Musculoskeletal: See HPI Skin: No symptoms reported Hematologic/Lymphatic: No symptoms reported Neurological/Psychological: No symptoms reported -: Yes All other systems reviewed and negative Physical Exam - Vital signs Vitals: Temp Pulse Resp BP Pulse Ox 97.4 F 101 H 16 105/41 L 100 03/05/20 13:39 03/05/20 13:39 03/05/20 13:39 03/05/20 13:39 03/05/20 13:39 - Notes Notes: PHYSICAL EXAMINATION: GENERAL: Well-appearing, well-nourished however patient is tearful and anxious in hospital room. HEAD: Atraumatic, normocephalic. EYES: Pupils equal round and reactive to light, extraocular movements intact, sclera anicteric, conjunctiva are injected secondary to crying ENT: nares patent, oropharynx clear without exudates. Moist mucous membranes. NECK: Normal range of motion, supple without lymphadenopathy, no appreciable JVD LUNGS: Lungs clear to auscultation bilaterally and equal. No wheezes rales or rhonchi. HEART: Regular rate and rhythm without murmurs ABDOMEN: Soft, nontender, normal bowel sounds. No guarding, no rebound. No masses appreciated. EXTREMITIES: Active full range of motion, no pitting or edema. No cyanosis. 2+ pulses x4 NEUROLOGICAL: No focal neurological deficits. Moves all extremities spontaneously and on command. Psychiatric: Patient is quite anxious but denies suicidal or homicidal ideations. SKIN: Warm, Dry, and intact. Normal turgor, no rashes or lesions noted. Course - Re-evaluation Re-evalutation: 03/05/20 15:41 I ordered a chest PA and lateral and was getting ready to order Ativan p.o. for the patient and nursing staff stated that the patient had eloped prior to completion of treatment. - Vital Signs Vital signs: Temp Pulse Resp BP Pulse Ox 97.4 F 101 H 16 105/41 L 100 03/05/20 13:39 03/05/20 13:39 03/05/20 13:39 03/05/20 13:39 03/05/20 13:39 Discharge - Discharge Clinical Impression: Anxiety and depression Condition: Stable Disposition: ELOPED Referrals: ADÁN TINEO PA-C [Primary Care Provider] - Follow up as needed
== END 2020-03-05 15:43 | disposition left against medical advice (07) ==
LOC: ER 13:29
DX: F32.9 Major depressive disorder, single episode, unspecified (principal); F41.9 Anxiety disorder, unspecified; R09.89 Other specified symptoms and signs involving the circulatory and respiratory systems; M79.10 Myalgia, unspecified site; R50.9 Fever, unspecified; R05 Cough; R06.02 Shortness of breath; F17.210 Nicotine dependence, cigarettes, uncomplicated; Z79.899 Other long term (current) drug therapy; Z88.0 Allergy status to penicillin; Z53.20 Procedure and treatment not carried out because of patient's decision for unspecified reasons
CPT/HCPCS: 99281

== ENCOUNTER → 2020-03-05 | Outpatient (CLI) | payer MEDICARE ==
[2020-03-05 13:20] VITALS: BP 114/68
--- NOTE | 2020-03-05 13:20 | ER RDC ASSESSMENT REPORT ---
Intake - In the Last 14 days Have you traveled outside [place]?: No Have you been in close contact with someone CONFIRMED: No Worked in Healthcare?: No - Symptoms Subjective Fever([place] feverish): No Chills: No Muscule Aches: Yes Runny Nose: Yes Sore Throat: Yes Cough (New or worsening chronic cough): No Shortness of breath: No Nausea or Vomiting: Yes Headache: No Abdominal Pain: No Diarrhea(3 or more loose stools in last 24 hours): Yes - Do you have any of the following Chronic lung disease: Asthma or emphysema or COPD: No Cystic Fibrosis: No Diabetes: No High Blood Pressure: No Cardiovascular Disease: No Chronic Kidney Disease: No Chronic Liver Disease: No Chronic blood disorder like Sickle Cell Disease: No Weak immune system due to disease or medication: No Neurologic condition that limits movement: No Developmental delay - Moderate to Severe: No Recent (within past 2 weeks) or current : No Morbid Obesity (>100 pounds over ideal weight): No - Objective Temperature: 96.9 F Pulse Rate: 88 Respiratory Rate: 20 Blood Pressure: 114/68 O2 Sat by Pulse Oximetry: 95 Objective: Given above, testing performed: If Testing Performed: Test Specimen Type Sent to General - General Information source: Patient Notes: Patient presents to the RTC for screening for the coronavirus. Patient reports having body aches, runny nose sore throat nausea and diarrhea for the past 2 days. Patient has a history of bipolar disorder and is a current smoker. - Related Data Allergies/Adverse Reactions: Penicillins Allergy (Verified 08/07/19 16:06) Past Medical History - General Information source: Patient - Social History Smoking Status: Current Every Day Smoker Family History: Reviewed & Not Pertinent Neurological Medical History: Reports: Hx Migraine Renal/ Medical History: Denies: Hx Peritoneal Dialysis Psychiatric Medical History: Reports: Hx Bipolar Disorder Surgical Hx: Negative Physical Exam - Notes Notes: The patient was evaluated during the global Covid 19 pandemic, and that diagnosis was suspected/considered upon their initial presentation. Their evaluation, treatment and testing was consistent with current guidelines for patients who present with complaints or symptoms that may be related to Covid 19. Full physical exam could not be performed due to covid 19 isolation protocols. Constitutional: Nontoxic appearance, anxious, tearful Eyes: Nonicteric, extraocular movements intact, sclera clear Cardiovascular: No JVD Respiratory: Sounds clear bilaterally, nonlabored breathing, no use of accessory muscles, no tachypnea Gastrointestinal: Abdomen not distended Muculoskeletal: Moves all extremities well Skin: Normal color Neuro: Awake alert oriented, normal speech Psych: Tearful, anxious Diagnostic Results Laboratory Results: Patient presents with upper respiratory symptoms worrisome for possible Covid 19. Patient does not have emergency worrying symptoms such as difficulty breathing, shortness of breath, chest pain, pressure, confusion or cyanosis. Patient appears suitable for discharge as they are not of an advanced age, do not have any chronic medical conditions such as diabetes, CAD, immune deficiency, chronic lung disease or chronic kidney disease. Patient's vital signs are stable and patient is nontoxic in appearance. Good return precautions have been discussed with patient, patient verbalized understanding and is agreeable with discharge plan of care at this time. Patient Education/Counseling Counseling/Education: Patient was provided with discharge information including: As a person under investigation for Covid 19, the [facility] and Human Services, division of public health advises you to adhere to the following guidance until your test results are reported to you. If your test result is positive, you will receive additional information from your provider and your local health department at that time. Remain at home until you are cleared by the health provider or public health authorities. Keep a log of visitors to your home, notify any visitors to your home of your isolation status. If you plan to move to a new address or leave the county, notify the local health department in your County. Call your doctor or seek care if you have an urgent medical need. Before seeking medical care, call ahead to get instructions from the provider before arriving at the medical office clinic or hospital. Notify them that you are being tested for the virus that causes Covid 19 so that arrangements can be made, as necessary, to prevent transmission to others in the healthcare setting. Next, notify the local health department in your county. If a medical emergency arises and you need to call 911, inform the first responders that you are being tested for the virus that causes Covid 19. Next, notify the local health department in your county. RDC Discharge - Discharge Clinical Impression: Encounter for screening laboratory testing for COVID-19 virus Condition: Stable Disposition: Home; Selfcare
== END ==
LOC: RDC 12:43
PROVIDERS: ATTEND Nurse Practitioner Family
DX: Z20.828 Contact with and (suspected) exposure to other viral communicable diseases (principal); J02.9 Acute pharyngitis, unspecified; R09.89 Other specified symptoms and signs involving the circulatory and respiratory systems; M79.10 Myalgia, unspecified site; R11.0 Nausea; R19.7 Diarrhea, unspecified; F17.200 Nicotine dependence, unspecified, uncomplicated; F31.9 Bipolar disorder, unspecified; Z88.0 Allergy status to penicillin
CPT/HCPCS: 87070; 87880; U0003; C9803; 87635; 99201; 99211